=== PATIENT | male | born 1965 | race Caucasian/White ===

== ENCOUNTER 2016-06-23 10:25 | Day surgery (SDC) | payer OTHER ==
[~2016-06-23 10:25] MED LIST: ACETAMINOPHEN 1,000 MG/100 ML 100 ML IV ONE; ceFAZolin 2 GM/50 ML 50 ML IV ONE
[2016-06-23] MEDS ORDERED: LACTATED RINGERS 1,000 ML IV ONE (11:19)
[2016-06-23] MEDS ORDERED: MIDAZOLAM 2 MG/2 ML VIAL IVP ONE (12:06)
[2016-06-23] MEDS ORDERED: ONDANSETRON 4 MG/2 ML VIAL IVP ONE (12:06)
[2016-06-23] MEDS ORDERED: ceFAZolin 2 GM/50 ML BAG IV ONE (12:06)
[2016-06-23] MEDS ORDERED: fentaNYL 100 MCG/2 ML VIAL IVP ONE (12:06)
[2016-06-23] MEDS ORDERED: ACETAMINOPHEN 1,000 MG/100 ML VIAL IV ONE (12:06)
[2016-06-23] MEDS ORDERED: PROPOFOL 200 MG/20 ML VIAL IVP ONE (12:06)
[2016-06-23] MEDS ORDERED: BUPIVACAINE 0.25% PF 30 ML VIAL SUBQ ONE (12:37)
== END 2016-06-23 10:26 | disposition home or self-care (01) ==
PROC: 01N50ZZ Release Median Nerve, Open Approach (ICD-10-PCS; principal; 2016-06-23 12:05)
DX: G56.02 Carpal tunnel syndrome, left upper limb (principal); I10 Essential (primary) hypertension
CPT/HCPCS: 64721; J0131; J0690; J7120

== ENCOUNTER 2016-08-14 06:05 | Day surgery (SDC) | payer OTHER ==
[2016-08-14] MEDS ORDERED: ACETAMINOPHEN 1,000 MG/100 ML 100 ML IV ONE (06:30)
[2016-08-14] MEDS ORDERED: ceFAZolin 2 GM/50 ML 50 ML IV ONE (06:30)
[2016-08-14] MEDS ORDERED: LACTATED RINGERS 1,000 ML IV ONE (06:38)
[2016-08-14] MEDS ORDERED: PROPOFOL 200 MG/20 ML VIAL IVP ONE (07:10)
[2016-08-14] MEDS ORDERED: ONDANSETRON 4 MG/2 ML VIAL IVP ONE (07:10)
[2016-08-14] MEDS ORDERED: LIDOCAINE-MPF 2% 5 ML VIAL IM ONE (07:10)
[2016-08-14] MEDS ORDERED: MIDAZOLAM 2 MG/2 ML VIAL IVP ONE (07:10)
[2016-08-14] MEDS ORDERED: fentaNYL 100 MCG/2 ML VIAL IVP ONE (07:10)
[2016-08-14] MEDS ORDERED: DEXAMETHASONE 4 MG/ML VIAL IVP ONE (07:10)
[2016-08-14] MEDS ORDERED: BUPIVACAINE 0.5% PF 30 ML VIAL INFIL ONE ×2 (08:00→08:24)
== END 2016-08-14 06:06 | disposition home or self-care (01) ==
PROC: 01N50ZZ Release Median Nerve, Open Approach (ICD-10-PCS; principal; 2016-08-14 07:30)
DX: G56.01 Carpal tunnel syndrome, right upper limb (principal); I10 Essential (primary) hypertension
CPT/HCPCS: 64721; J0131; J0690; J7120

== ENCOUNTER 2017-03-19 06:08 | Day surgery (SDC) | payer OTHER ==
[~2017-03-19 06:08] MED LIST changes: -ACETAMINOPHEN 1,000 MG/100 ML 100 ML IV ONE; +DEXAMETHASONE 4 MG/ML VIAL IVP ONE; +KETOROLAC 30 MG/ML VIAL IVP ONE; +LIDOCAINE-MPF 2% 5 ML VIAL IM ONE; +METOCLOPRAMIDE 10 MG/2 ML VIAL IVP ONE; +ONDANSETRON 4 MG/2 ML VIAL IVP ONE; +PROPOFOL 200 MG/20 ML VIAL IVP ONE; -ceFAZolin 2 GM/50 ML 50 ML IV ONE; +ceFAZolin 2 GM/50 ML BAG IV ONE
[2017-03-19] MEDS ORDERED: ceFAZolin 2 GM/50 ML 2 GM/50 ML BAG IV ONE (06:46)
[2017-03-19] MEDS ORDERED: LACTATED RINGERS 1,000 ML IV ONE (07:09)
[2017-03-19] MEDS ORDERED: BUPIVACAINE 0.25% PF 30 ML VIAL SUBQ ONE (08:07)
[2017-03-19] MEDS: fentaNYL 100 MCG/2 ML VIAL ONE ×2 (09:18→09:24)
[2017-03-19] MEDS ORDERED: ACETAMINOPHEN 1,000 MG/100 ML 100 ML IV ONE (10:16)
[2017-03-19 10:24] VITALS: BP 125/88
--- NOTE | 2017-03-19 14:35 | OPERATIVE REPORT ---
DATE OF SURGERY: 03/19/2017 00:00:00 [facility] . PREOPERATIVE DIAGNOSIS: Left carpal tunnel syndrome. POSTOPERATIVE DIAGNOSIS: Left carpal tunnel syndrome. OPERATION PERFORMED: Left open carpal tunnel revision release. PRIMARY SURGEON: Pat Calvin MD. ANESTHESIOLOGIST: Paulino Moreno MD. CIRCULATING NURSE: Terrie Cazares RN. SCRUB TECHS 1. Marcela Almeida. 2. Thais Dahl. ANESTHESIA: General via LMA. INTRAVENOUS FLUIDS: 300 mL lactated Ringer's. ESTIMATED BLOOD LOSS: 2 mL. ANTIBIOTICS: 2 grams Ancef IV. TOURNIQUET: To left arm at 200 mmHg for 46 minutes. IMPLANTS: None. SPECIMENS: None. COMPLICATIONS: None. INDICATIONS FOR SURGERY: This is a 51-year-old male who underwent a left carpal tunnel release on 06/23/2016. He initially had resolution of preoperative symptoms following the surgery with exception of ring finger numbnes; however, in November 2016 began to have progressively worsening numbness and tingling in his median nerve distribution, as well as pain. A repeat EMG/NCS showed compression of the median nerve in the carpal tunnel. Treatment options were discussed with the patient, including risks, benefits, indications, expectations. Risks of surgery to include, but not limited to infection, bleeding, damage to neurovascular structures to include the median nerve, damage to flexure tendons of the hand, need for additional surgery, persistent or worsened pain, wrist stiffness, deep vein thrombosis, pulmonary embolism, loss of limb, and loss of life were discussed with the patient. All questions were answered, the patient elected to proceed with surgery and informed consent was obtained. DESCRIPTION OF PROCEDURE: The patient was met on the operative day in the preoperative holding area where we confirmed that we had the correct patient, planned to do the correct procedure, and had the correct extremity, which was the left upper extremity identified. Prior to the patient receiving any medications, the operative extremity was initialed by the surgeon. The patient was then brought back to the operating room in stable condition and placed supine on the operating room table. All bony prominences were well-padded. Sequential compression devices were placed on the bilateral lower extremities. General anesthesia was then induced without complication and LMA was placed. The left upper extremity was then prepped and draped in the usual sterile fashion. After final draping, additional ChloraPrep was utilized on the operative site. Three minutes were allowed to elapse to enable the ChloraPrep to dry. We held a surgical time-out, where we confirmed that we had the correct patient, planned to do the correct procedure, had the correct extremity, which was the left upper extremity identified. We also confirmed that all necessary gear was in the room and confirmed sterile, that the patient received preoperative antibiotics, and that no members of the operative team had any concerns. I began by exsanguinating the left upper extremity and inflating the tourniquet to 200 mmHg. I then made an incision through the prior carpal tunnel incision on the volar aspect of the wrist. After sharply incising the skin, I dissected through the subcuticular layer utilizing bipolar cautery to maintain hemostasis. I then encountered the palmar fascia, which was significantly scarred. I utilized tenotomies to carefully dissect through the palmar fascia. I then identified additional scar tissue overlying the median nerve, which was carefully dissected out utilizing tenotomies. After identifying the nerve, a Wilder was utilized to protect the nerve while the remainder of the scar tissue was cut sharply with a knife blade. The nerve was adhesed to the soft tissue around it, which was carefully freed utilizing the tenotomies. The initial incision was then extended proximally and distally, as there was more scar tissue both proximally and distally. The scar tissue was then sharply divided as well, utilizing a Wilder to protect the median nerve. The Wilder then was able to pass proximally and distally easily. Of note, the nerve had a bulbous appearance to it in the middle of the carpal tunnel, as well as engorged vessels about the nerve. The wound was thoroughly irrigated. The skin was closed utilizing 3-0 nylon in a horizontal mattress fashion. The wound was then dressed with sterile Xeroform , plain gauze, and Webril. A volar resting splint was then placed on the patient. All sponge counts and needle counts were correct at the conclusion of the case. The patient was awakened from general anesthesia without complication and taken to the PACU in stable condition. The patient was evaluated post-operatively in the recovery room, where he was noted to have decreased numbness and tingling in his median nerve distribution. POSTOPERATIVE PLAN: The patient will follow up in 10-14 days for a wound check. In 7 days, the patient may take off the splint and begin gentle range of motion. He may shower at that time and let water run over his incisions, but he is not to soak his wounds or scrub his incision. I will see the patient back in 10-14 days, at which time we will remove the sutures and begin the patient in formal occupational therapy. Discussed with the patient the importance of avoiding heavy lifting or repetitive wrist motion or things that impact the area of his incision to help prevent further scar tissue accumulation. Report edited and signed 03/22/2017 by Pat Calvin MD. JOB #: [id number] EXT JOB #:[id number]
== END 2017-03-19 06:09 | disposition home or self-care (01) ==
LOC: SDS 06:08
PROVIDERS: ATTEND Orthopaedic Surgery
PROC: 01N50ZZ Release Median Nerve, Open Approach (ICD-10-PCS; principal; 2017-03-19 07:30)
DX: G56.02 Carpal tunnel syndrome, left upper limb (principal); I10 Essential (primary) hypertension
CPT/HCPCS: 64721; J0131; J0690; J7120